=== PATIENT | female | born 1975 | race Caucasian/White ===

== ENCOUNTER 2018-01-11 10:16 | Emergency (ER) | payer BC ==
[~2018-01-11] VITALS: Ht 154.9 cm; Wt 38.6 kg
[2018-01-11] MEDS ORDERED: SODIUM CHLORIDE 0.9% 1000ML 1,000 ML IV STA (10:38)
[2018-01-11] MEDS ORDERED: KETOROLAC TROMETHAMINE 30 MG/ML VIAL IV STA (10:38)
[2018-01-11] MEDS ORDERED: ONDANSETRON HCL 4 MG ORAL DISINTEGRATING TAB PO ONE (10:45)
[2018-01-11 10:59] LABS: BASOPHILS % 0.4 % (0.0-1.0); EOSINOPHILS % 0.2 % (0.0-6.0); HEMATOCRIT 38.1 % (34.2-44.1); HEMOGLOBIN 12.9 g/dL (12.0-16.0); LYMPHOCYTES % 9.5 % (18.0-39.1); MEAN CORPUSCULAR HEMOGLOBIN 32.4 pg (28-32); MEAN CORPUSCULAR HGB CONC 33.9 g/dL (31-35); MEAN CORPUSCULAR VOLUME 95.7 fL (81-99); MONOCYTES # (AUTO) 0.5 (0.2-0.8); MONOCYTES % 4.5 % (4.4-11.3); NEUTROPHILS # (AUTO) 8.6 (2.1-6.9); PLATELET COUNT 225 x10e3/uL (140-360); RED BLOOD COUNT 3.98 x10e6/uL (3.6-5.1); RED CELL DISTRIBUTION WIDTH 11.5 % (11.7-14.4)
--- NOTE | 2018-01-11 11:17 | Diagnostic Imaging Report ---
EXAMINATION: CHEST SINGLE (PORTABLE) COMPARISON: None FINDINGS: TUBES and LINES: None. LUNGS: Lungs are well inflated. Lungs are clear. There is no evidence of pneumonia or pulmonary edema. PLEURA: No pleural effusion or pneumothorax. HEART AND MEDIASTINUM: The cardiomediastinal silhouette is unremarkable. BONES AND SOFT TISSUES: No acute osseous lesion. Soft tissues are unremarkable. UPPER ABDOMEN: No free air under the diaphragm. IMPRESSION: No acute thoracic abnormality. Signed by: Dr. Dani Wells MD on 01/11/2018 11:14 AM
[2018-01-11 11:23] LABS: INR 1.07; PARTIAL THROMBOPLASTIN TIME 24.7 seconds (23.8-35.5); PROTHROMBIN TIME 13.1 seconds (11.9-14.5)
[2018-01-11 11:28] LABS: BILIRUBIN,URINE NEGATIVE (NEGATIVE); CLARITY,URINE SL CLOUDY (CLEAR); COLOR,URINE YELLOW (YELLOW); KETONES,URINE NEGATIVE (NEGATIVE); LEUKOCYTE ESTERASE ,URINE NEGATIVE (NEGATIVE); NITRITE,URINE NEGATIVE (NEGATIVE); PROTEIN,URINE DIPSTICK NEGATIVE (NEGATIVE); URINE UROBILINOGEN 0.2 mg/dL (0.2 - 1)
[2018-01-11 11:31] LABS: ALANINE AMINOTRANSFERASE 15 IU/L (0-55); ALBUMIN 4.2 g/dL (3.5-5.0); ALBUMIN/GLOBULIN RATIO 1.4 (0.8-2.0); ALKALINE PHOSPHATASE 49 IU/L (40-150); AMYLASE 79 U/L (25-125); BLOOD UREA NITROGEN 20 mg/dL (7-26); BUN/CREATININE RATIO 24 (6-25); CALCIUM 10.2 mg/dL (8.4-10.2); CARBON DIOXIDE 25 mmol/L (22-29); CHLORIDE 103 mmol/L (98-107); CREATINE KINASE 102 IU/L (29-168); CREATININE, SERUM 0.83 mg/dL (0.57-1.11); EST GLOMERULAR FILTRATION RATE > 60 ML/MIN (60-); GLUCOSE 127 mg/dL (74-118); LIPASE 30 U/L (8-78); MAGNESIUM 1.4 MG/DL (1.3-2.1); SODIUM 139 mmol/L (136-145)
[2018-01-11 11:44] LABS: BACTERIA,URINE FEW /HPF; EPITHELIAL CELLS,URINE FEW /LPF; RBC,URINE >50 /HPF (0-5)
[2018-01-11] MEDS ORDERED: CEFTRIAXONE SOD 1 GM VIAL IV ONE (12:00)
--- NOTE | 2018-01-11 13:43 | Diagnostic Imaging Report ---
EXAM: CT Abdomen and Pelvis WITHOUT contrast INDICATION: Abdominal pain COMPARISON: None. TECHNIQUE: Abdomen and pelvis were scanned utilizing a multidetector helical scanner from the lung base to the pubic symphysis without administration of IV contrast. Absence of intravenous contrast decreases sensitivity for detection of focal lesions and vascular pathology. Coronal and sagittal reformations were obtained. Routine protocol was performed. IV CONTRAST: None. ORAL CONTRAST: Water RADIATION DOSE: Total DLP: 156 mGy*cm Estimated effective dose: (DLP x 0.015 x size factor) mSv COMPLICATIONS: None FINDINGS: LINES and TUBES: None. LOWER THORAX: Unremarkable HEPATOBILIARY: No focal hepatic lesions. No biliary ductal dilation. GALLBLADDER: No radio-opaque stones or sludge. No wall thickening. SPLEEN: No splenomegaly. PANCREAS: No evidence of pancreatic ductal dilatation or focal masses although evaluation is limited in the absence of IV contrast. ADRENALS: No adrenal nodules KIDNEYS/URETERS: There is a 6 mm left proximal ureteral stone associated mild left hydronephrosis. There are multiple punctate bilateral renal stones. The largest stones in the left kidney measure 5 mm and 4 mm in the left lower pole. The largest stone on the right measures 3 mm in the upper pole. Bilateral medullary nephrocalcinosis is noted. There is a 1.5 cm simple renal cyst in the right mid pole kidney. GI TRACT: No abnormal distention, wall thickening, or evidence of bowel obstruction. PELVIC ORGANS/BLADDER: Unremarkable. LYMPH NODES: No lymphadenopathy. VESSELS: Scattered atherosclerotic aortic calcifications. PERITONEUM / RETROPERITONEUM: No free air or fluid. BONES: No acute bony findings. IMPRESSION: A 6 mm proximal left ureteral stone with associated mild left hydronephrosis. Numerous other bilateral non-obstructive renal stones measuring up to 5 mm on the left and 3 mm on the right. Medullary nephrocalcinosis, with a differential including hyperparathyroidism, medullary sponge kidney, and hypervitaminosis D among other etiologies. Signed by: Dr. Dani Wells MD on 01/11/2018 1:39 PM
[2018-01-11 15:07] VITALS: BP 127/83
== END 2018-01-11 14:55 | disposition home or self-care (01) ==
LOC: ER 10:16
DX: R10.13 Epigastric pain (principal); R11.2 Nausea with vomiting, unspecified; N20.0 Calculus of kidney
CPT/HCPCS: 36415; 71045; 74176; 80053; 81001; 81025; 82150; 82550; 82553; 83690; 83735; 84443; 84484; 85025; 85610; 85730; 99284; J0696; J1885; J7030